=== PATIENT | male | born 1970 | race Caucasian/White ===

== ENCOUNTER 2023-10-21 08:46 | Outpatient (REF) | payer OTHER, SELFPAY ==
--- NOTE | ~2023-10-21 | XR_ITS ---
EXAMINATION: XR KNEE, RIGHT XR KNEE, LEFT XR KNEE AP STANDING CLINICAL INFORMATION: Pain. COMPARISON: Radiographs dated 07/03/2019. TECHNIQUE: AP, lateral and sunrise views of the right knee are obtained. AP, lateral and sunrise views of the left knee are obtained. AP bilateral standing view of the knees was obtained. FINDINGS: RIGHT KNEE: Bony alignment and mineralization are normal. There is marked tricompartment joint space narrowing, with peripheral osteophyte formation. No fracture or dislocation is seen. There is a moderately large joint effusion. No foreign body is seen. LEFT KNEE: Prosthetic components of the total knee arthroplasty are appropriately aligned without periprosthetic fracture or abnormal lucency. No component migration. No joint effusion. XR/XR knee standing BI IMPRESSION: 1. There is marked tricompartment osteoarthritic change of the right knee. 2. There is a moderately large right knee joint effusion. 3. Appropriate alignment of the left total knee arthroplasty, without evidence of complications.
--- NOTE | ~2023-10-21 | XR_ITS ---
EXAMINATION: XR KNEE, RIGHT XR KNEE, LEFT XR KNEE AP STANDING CLINICAL INFORMATION: Pain. COMPARISON: Radiographs dated 07/03/2019. TECHNIQUE: AP, lateral and sunrise views of the right knee are obtained. AP, lateral and sunrise views of the left knee are obtained. AP bilateral standing view of the knees was obtained. FINDINGS: RIGHT KNEE: Bony alignment and mineralization are normal. There is marked tricompartment joint space narrowing, with peripheral osteophyte formation. No fracture or dislocation is seen. There is a moderately large joint effusion. No foreign body is seen. LEFT KNEE: Prosthetic components of the total knee arthroplasty are appropriately aligned without periprosthetic fracture or abnormal lucency. No component migration. No joint effusion. XR/XR knee LT 2V IMPRESSION: 1. There is marked tricompartment osteoarthritic change of the right knee. 2. There is a moderately large right knee joint effusion. 3. Appropriate alignment of the left total knee arthroplasty, without evidence of complications.
--- NOTE | ~2023-10-21 | XR_ITS ---
EXAMINATION: XR KNEE, RIGHT XR KNEE, LEFT XR KNEE AP STANDING CLINICAL INFORMATION: Pain. COMPARISON: Radiographs dated 07/03/2019. TECHNIQUE: AP, lateral and sunrise views of the right knee are obtained. AP, lateral and sunrise views of the left knee are obtained. AP bilateral standing view of the knees was obtained. FINDINGS: RIGHT KNEE: Bony alignment and mineralization are normal. There is marked tricompartment joint space narrowing, with peripheral osteophyte formation. No fracture or dislocation is seen. There is a moderately large joint effusion. No foreign body is seen. LEFT KNEE: Prosthetic components of the total knee arthroplasty are appropriately aligned without periprosthetic fracture or abnormal lucency. No component migration. No joint effusion. XR/XR knee RT 2V IMPRESSION: 1. There is marked tricompartment osteoarthritic change of the right knee. 2. There is a moderately large right knee joint effusion. 3. Appropriate alignment of the left total knee arthroplasty, without evidence of complications.
== END 2023-10-21 08:47 | disposition home or self-care (01) ==
LOC: HO.HOSX 08:46
PROVIDERS: Visit Provider Orthopaedic Surgery
DX: M06.9 Rheumatoid arthritis, unspecified (principal); M25.561 Pain in right knee; M25.562 Pain in left knee
CPT/HCPCS: 73560; 73565

== ENCOUNTER 2023-10-21 08:54 | Outpatient (AMB) | payer OTHER, SELFPAY ==
--- NOTE | 2023-10-21 08:58 | A.OFFVIS_ITS ---
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 Positive RA. Hx of Left TKA 05/16/2019. Previous Meniscus repair on the right knee about 17 years ago. Patient reports that he is having pain in the right knee, describes as a shooting pain on medial and lateral aspects of the knee and occasionally the posterior aspect. He has increased pain with standing, stairs, and walking. He takes ibuprofen for the pain, which does help mildly. He is taking prednisone on an as needed basis for RA. Allergies sertraline [SERTRALINE] Allergy (Unknown, Verified 10/21/23 09:00) CRAZY THOUGHTS/DREAMS, personality changed HPI Collections Technician- Right knee pain HPI Details Thomas is a 53 year old man who presents with complaints of right knee pain. He has pain with daily activity, worse with standing from a seated position, prolonged walking, or using stairs. He describes his pain as shooting localized to the medial & lateral aspects of his knee. He can walk around the supermarket slowly but that's about it. His pain isn't as severe as it was in his contralateral knee. He has a hx of a left TKA, DOS: 05/16/19, and a right knee meniscus surgery in ~2006. He has a hx of RA was taking Prednisone for this. He is getting off steroids however. He take leflunomide for his RA. [facility] Medical History (Updated 10/21/23 @ 09:46 by Shun Ng MD) Raynauds disease Surgical History (Updated 10/21/23 @ 09:02 by Henna Monge CMA) History of arthroscopy of right shoulder (Unknown) H/O arthroscopy of right knee (Unknown) History of total left knee replacement (05/16/19) Family History Mother Depression Maternal Uncle Alcohol abuse Social History (Updated 10/21/23 @ 09:06 by Henna Monge CMA) Housing: House Patient Tobacco Use Status: Current everyday Tobacco user Tobacco use type: Cigarette Cigarettes Per Day: 20 e-Cigarette/Vaping Use: Never Used service: No Current occupational status: employed Current occupation: [employer] Cognitive needs: No Hearing needs: No Vision needs: Yes Review of Systems Const All systems reviewed & are unremarkable except as noted in HPI and below Physical Exam Vital Signs: BMI result Body Mass Index 20.8 Const General: no acute distress, alert and awake Orientation/consciousness: patient oriented x3 HEENT Head: Yes normocephalic and Yes atraumatic Mouth: moist mucous membranes Eyes General: appearance normal, both eyes and all related structures EOM: EOMs intact bilaterally Chest Other: no audible wheezing. Resp Other: No audible wheezing Effort & Inspection: normal respiratory effort and able to speak in complete sentences Cardio Other: Radial pulse palpable with no rythmic abnormalities Jugular venous distension: no JVD Back/Spine/Pelvis Cervical Spine: normal cervical lordosis Skin General skin exam: turgor normal Rashes: no rashes Neuro General: patient oriented x3 Extrem Other: right knee 10-140 deg 1+ varus laxity mild effusion + gait antalgia Psych Appearance: grossly normal Mental Status: mental status grossly normal Speech and movement: Normal speech and movement present Affect: normal affect Attitude: cooperative Results Reviewed Results Reviewed: I personally reviewed relevant radiographs. Left total knee arthroplasty in expected post operative position with no hardware complications or evidence of loosening Right knee with progressive loss of bone and severe tricompartmental loss of joint space c/w inflammatory arthropathy Assessment & Plan Assessment & Plan (1) Rheumatoid arthritis involving right knee: Code(s): M06.9 - Rheumatoid arthritis, unspecified Plan: Severe right knee arthritis 2/2 RA. There is progression of OA over past 8 years and there is ligamentous laxity and progressive loss of function with a 10 deg extensor lag. I discussed his radiographs and his diagnosis. He did very well after his left TKA and I recommend right TKA. His function is limited and there is worsening deformity. I discussed the risks benefits and alternatives including but not limited to the risk of pain, infection, stiffness, need for further surgery as well as potential medical complications such as blood clots, pulmonary embolism and cardiac complications. He expressed understanding. We will begin our preoperative clearance process. Plan Prepared for Shun Ng MD by Jos Gross forensic medical examiner, on 10/21/23 at 9:05 AM, EST. Orders: Orders XR knee standing BI Today M25.569 - Pain in unspecified knee XR knee RT 2V Today M25.569 - Pain in unspecified knee XR knee LT 2V Today M25.569 - Pain in unspecified knee Coding Level of Care Code New Pt Level 4 (51106) Diagnoses Rheumatoid arthritis involving right knee M06.9
[2023-10-21 09:03] VITALS: BMI 20.8
== END 2023-10-21 09:28 | disposition home or self-care (01) ==
PROVIDERS: PCP Nurse Practitioner Family; Visit Provider Orthopaedic Surgery
DX: M25.561 Pain in right knee (principal); M06.061 Rheumatoid arthritis without rheumatoid factor, right knee
CPT/HCPCS: 99204